=== PATIENT | female | born 1990 | race Caucasian/White ===

== ENCOUNTER 2016-08-28 19:29 | Emergency (ER) | payer SELFPAY ==
[~2016-08-28] VITALS: Ht 147.3 cm; Wt 53.5 kg
[2016-08-28 19:41] VITALS: BP 111/79
--- NOTE | 2016-08-28 22:50 | NUR ---
PATIENT LEFT WITHOUT BEING SEEN BY DR. [email or web address]. NO FURTHER CARE PROVIDED FOR PATIENT.
== END 2016-08-28 22:50 | disposition left against medical advice (07) ==
LOC: MED 19:29
DX: R52 Pain, unspecified (principal); Z53.21 Procedure and treatment not carried out due to patient leaving prior to being seen by health care provider

== ENCOUNTER 2019-03-13 11:09 | Emergency (ER) | payer OTHER ==
[~2019-03-13] VITALS: Ht 149.9 cm; Wt 54.4 kg
[2019-03-13 11:23] VITALS: BP 114/84
== END 2019-03-13 12:10 | disposition left against medical advice (07) ==
LOC: MED 11:09
DX: R52 Pain, unspecified (principal); Z53.21 Procedure and treatment not carried out due to patient leaving prior to being seen by health care provider